=== PATIENT | female | born 1995 | race African-American/Black ===

== ENCOUNTER → 2018-07-01 | Outpatient (CLI) | payer BC ==
[~2018-07-01] VITALS: Ht 167.6 cm; Wt 73.0 kg
[2018-07-01 17:04] VITALS: BP 131/85
== END | disposition home or self-care (01) ==
LOC: IVINF 16:00
DX: O20.0 Threatened abortion (principal); Z31.82 Encounter for Rh incompatibility status; Z3A.00 Weeks of gestation of pregnancy not specified
CPT/HCPCS: 96372